=== PATIENT | female | born 1985 | race Caucasian/White ===

== ENCOUNTER 2017-02-05 14:17 | Emergency (ER) | payer OTHER ==
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
[2017-02-05 15:48] LABS: Appearance,Urine Clear (Clear); Bacteria,Urine Rare /hpf; Bilirubin,Urine Negative (Negative); Glucose,Urine (UA) Negative (Negative); Ketones,Urine Negative (Negative); Leukocyte Esterase,Urine Negative (Negative); Mucus,Urine Few /hpf; Nitrite,Urine Negative (Negative); PH, Urine 5.5 (5.0-8.0); Particle Count 4988; Protein,Urine Trace (Negative); RBC,Urine 3 /hpf (0-5); Specific Gravity,Urine 1.022 (1.001-1.035); Squamous Epithelial Cell,Urine 1 /hpf (0-4); UA Billing (MACRO vs. MICRO) MICRO; WBC,Urine 2 /hpf (0-5)
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
[2017-02-05 17:59] VITALS: BP 102/70; PULSE 80; RESP 14; TEMP 98.2
== END 2017-02-05 18:10 | disposition home or self-care (01) ==
LOC: MERGE 14:17 → EC 14:17
DX: S06.0X0A Concussion without loss of consciousness, initial encounter (principal); N93.9 Abnormal uterine and vaginal bleeding, unspecified; Z97.5 Presence of (intrauterine) contraceptive device; Z88.5 Allergy status to narcotic agent; Z91.018 Allergy to other foods; V40.5XXA Car driver injured in collision with pedestrian or animal in traffic accident, initial encounter
CPT/HCPCS: 70450; 72125; 76830; 81001; 81025; 87070; 87205; 87491; 87591; 87808; 93976; 99284